=== PATIENT | male | born 1970 | race Hispanic/Latino ===

== ENCOUNTER → 2020-10-31 | Outpatient (CLI) | payer BC | LOC: US 09:25 | PROVIDERS: ATTEND Internal Medicine Endocrinology, Diabetes & Metabolism | DX: E05.90 Thyrotoxicosis, unspecified without thyrotoxic crisis or storm (principal) | CPT/HCPCS: 76536 ==

== ENCOUNTER → 2021-01-06 | Outpatient (CLI) | payer BC | LOC: US 10:47 | PROVIDERS: ATTEND Internal Medicine Endocrinology, Diabetes & Metabolism | DX: E04.2 Nontoxic multinodular goiter (principal) | CPT/HCPCS: 10005; 88112; 88172; 88173; 88305 ==